=== PATIENT | male | born 1950 | race Caucasian/White ===

== ENCOUNTER → 2018-08-09 | Day surgery (SDC) | payer MEDICARE, OTHER ==
[2018-08-06 10:47] LABS: BASOPHILS # (AUTO) 0.1 (0.0-0.1); EOSINOPHILS # (AUTO) 0.7 (0.0-0.4); EOSINOPHILS % 6.7 % (0.0-6.0); HEMATOCRIT 48.7 % (38.2-49.6); HEMOGLOBIN 16.5 g/dL (14.0-18.0); LYMPHOCYTES # (AUTO) 1.1 (1.0-3.2); LYMPHOCYTES % 11.6 % (18.0-39.1); MEAN CORPUSCULAR HEMOGLOBIN 30.9 pg (28-32); MEAN CORPUSCULAR HGB CONC 33.9 g/dL (31-35); MEAN CORPUSCULAR VOLUME 91.2 fL (81-99); MONOCYTES # (AUTO) 1.1 (0.2-0.8); MONOCYTES % 10.8 % (4.4-11.3); NEUTROPHILS # (AUTO) 6.8 (2.1-6.9); NEUTROPHILS % 69.3 % (38.7-80.0); PLATELET COUNT 218 x10e3/uL (140-360); RED BLOOD COUNT 5.34 x10e6/uL (4.3-5.7); RED CELL DISTRIBUTION WIDTH 13.2 % (11.7-14.4)
[~2018-08-09] MED LIST: FENTANYL CITRATE/PF 100MCG/2 ML INJ ONE; GLUCAGON FOR INJ 1 MG VIAL ONE; HYOSCYAMINE SULFATE 0.5 MG/ML INJ ONE; LOTREL 10-20 M1 EACH PO; MIDAZOLAM HCL 2 MG/2 ML VIAL ONE; MOBIC7.5 MG PO; PANTOPRAZOLE SO40 MG PO; PROPOFOL IV EMULSION 10 MG/ML 50 ML VIAL ONE; VIT B12 IM; VYVANSE50 MG PO
[2018-08-09 15:20] VITALS: BP 139/65
--- NOTE | 2018-08-09 15:52 | Operative Report ---
DATE OF PROCEDURE: August 09, 2018 REFERRING PHYSICIAN: Dr. Gabe Grant. PROCEDURES PERFORMED: 1. Esophagogastroduodenoscopy with biopsies. 2. Colonoscopy with polypectomy and biopsies. INDICATIONS FOR ESOPHAGOGASTRODUODENOSCOPY: Heartburn, bloating. INDICATIONS FOR COLONOSCOPY: Diarrhea , new onset. Personal history of colon polyps. MEDICATION: Patient was done under MAC. Please see anesthesiologist's note. PROCEDURE: With the patient in the left lateral decubitus position, the flexible fiberoptic Olympus gastroscope was introduced into the esophagus under direct visualization without any difficulty. There was some patchy erythema noted in the distal esophagus. Grade 1 esophageal varices versus prominent esophageal veins were noted without active bleeding. The scope was then advanced with ease into the stomach, traversing a small sliding hiatal hernia. Mucosa overlying the antrum and the body revealed some patchy erythema and low-grade to moderate edema, and biopsies were obtained and sent to stain for H. pylori. Pylorus appeared to be of normal contour and shape, was intubated with ease, and the scope was advanced all the way to the 2nd portion of the duodenum. The scope was then withdrawn slowly, and the mucosa overlying the proximal 2nd portion and the duodenal bulb appeared to be within normal limits. The scope was then withdrawn back into the stomach and retroflexed, and mucosa overlying the fundus and the cardia appeared to be within normal limits. The scope was then straightened out. It was subsequently withdrawn. Patient tolerated the procedure well. IMPRESSION: 1. Mild distal esophagitis. 2. Grade 1 esophageal varices versus prominent esophageal veins without active bleeding. 3. Small sliding hiatal hernia. 4. Gastritis biopsied. Biopsies sent to stain for H. pylori. The patient was then turned around and after adequate lubrication of the anal canal, a flexible fiberoptic Olympus colonoscope was inserted into the rectum with ease and advanced all the way to the cecum. The scope was then withdrawn slowly. Mucosa overlying the cecum and ascending colon appeared to be within normal limits. One polyp was hot biopsied from the transverse colon. The mucosa overlying the descending colon grossly appeared to be within normal limits. The mucosa overlying the sigmoid and the rectum was diffusely ulcerated and somewhat nodular and friable, and biopsies were obtained. One polyp was hot biopsied from the sigmoid colon. The scope was then retroflexed into the distal rectum and small internal hemorrhoids were noted, none of which was actively bleeding. The scope was then straightened out. It was subsequently withdrawn after securing an adequate stool specimen that was sent for the appropriate stool studies. Patient tolerated the procedure well. IMPRESSION: 1. Transverse colon polyp hot biopsied. 2. Diverticulosis. 3. Sigmoid colon polyp hot biopsied. 4. Ulcerative proctosigmoiditis. 5. Internal hemorrhoids, none actively bleeding. PLAN: Follow up histology. Follow up stool studies. Initiate VSL#3 one p.o. daily and Bentyl 10 mg 1 p.o. t.i.d. Job#: [id number] EV cc:GABE GRANT MD
[2018-08-09 16:57] LABS: WBC,FECAL (FECAL LACTOFERRIN) POSITIVE (NEGATIVE)
[2018-08-10 13:00] LABS: C DIFFICILE TOXIN A&B AMP PROB NEGATIVE (NEGATIVE)
== END | disposition home or self-care (01) ==
LOC: OR 11:23
PROVIDERS: ATTEND Internal Medicine Gastroenterology
DX: K29.70 Gastritis, unspecified, without bleeding (principal); K63.5 Polyp of colon; K51.30 Ulcerative (chronic) rectosigmoiditis without complications; K20.9 Esophagitis, unspecified; K44.9 Diaphragmatic hernia without obstruction or gangrene; K57.30 Diverticulosis of large intestine without perforation or abscess without bleeding; K64.8 Other hemorrhoids; I10 Essential (primary) hypertension; F17.210 Nicotine dependence, cigarettes, uncomplicated; Z01.810 Encounter for preprocedural cardiovascular examination; Z01.812 Encounter for preprocedural laboratory examination
CPT/HCPCS: 36415; 43239; 45380; 45384; 83630; 83993; 85025; 87045; 87177; 87328; 87493; 93005; J1610; J1980; J2250; 45378

== ENCOUNTER → 2018-10-07 | Outpatient (CLI) | payer MEDICARE ==
[~2018-10-07] MED LIST changes: -FENTANYL CITRATE/PF 100MCG/2 ML INJ ONE; -GLUCAGON FOR INJ 1 MG VIAL ONE; -HYOSCYAMINE SULFATE 0.5 MG/ML INJ ONE; -MIDAZOLAM HCL 2 MG/2 ML VIAL ONE; -PROPOFOL IV EMULSION 10 MG/ML 50 ML VIAL ONE
--- NOTE | 2018-10-07 13:19 | Diagnostic Imaging Report ---
EXAM: Right upper quadrant abdominal ultrasound INDICATION: Abdominal pain. COMPARISON: None. TECHNIQUE: Transverse and longitudinal images of the right upper quadrant abdomen were obtained FINDINGS: Liver: Size: 15.1 cm in the right midclavicular line Appearance: Normal echogenicity, smooth contour Mass: There is a hyperechoic, homogeneous, well-circumscribed lesion measuring 2.2 x 2.0 x 2.6 cm in the right lobe of the liver. Gallbladder: No evidence of distention, pericholecystic fluid, wall thickening, stone, or reported sonographic Robledo's sign. Gallbladder wall measures 0.2 cm. Bile Ducts: Intrahepatic Ducts: No dilatation Extrahepatic Ducts: Common bile duct measures 0.4 cm, no dilatation Pancreas: Visualized portions of the pancreatic head, neck and proximal body are normal. Kidney: The right kidney measures 10.2 cm without evidence of hydronephrosis or stone. Vessels: Aorta: Visualized portions are normal Inferior Vena Cava: Visualized portions are normal Main Portal Vein: 1.3 cm, normal size with hepatopetal flow. Free Fluid: No evidence of ascites. IMPRESSION: Well-circumscribed, homogeneous, hyperechoic right hepatic lobe lesion measuring up to 2.6 cm. Imaging characteristics are suggestive of but not definitive for hemangioma. A liver protocol CT or MRI may be considered for further evaluation. No sonographic evidence of cholecystitis. Signed by: Dr. Go Veras MD on 10/07/2018 1:16 PM
== END ==
LOC: US 09:54
PROVIDERS: ATTEND Internal Medicine Gastroenterology
DX: R10.9 Unspecified abdominal pain (principal)
CPT/HCPCS: 76705

== ENCOUNTER → 2019-01-17 | Outpatient (CLI) | payer MEDICARE ==
--- NOTE | 2019-01-17 15:06 | Diagnostic Imaging Report ---
History:May back pain for 4 months Comparison studies:None Technique: Sagittal T2, T1 and STIR, coronal T2. Intravenous contrast: None Findings: Curvature: Normal kyphosis. No scoliosis. Paraspinal soft tissues: No paraspinal signal abnormalities. 2 cm cyst is seen in the left kidney upper pole. T2 hyperintense lesions are seen in the liver segments 6 and 7, measuring 0.5 and 1 cm, may represent hemangiomas. Prior Spinal cord: Normal in morphology and signal intensity. Vertebrae: Nonspecific 1 cm lesion is seen at T1 vertebral body anterior aspect, hypointense on T1 and hyperintense on T2. T1 isointense lesions are seen at T2, T6, T8, T12 and L1 vertebral bodies, most likely related to hemangioma. No acute fractures, infection or neoplasm. Chronic mild loss of central height at T7, T8, T9 and T11 vertebral body, with associated Schmorl nodes at the endplates. Disk spaces: Disc degeneration with loss of T2 signal from T1 through T9. Disk herniations: At T5-6 small central disc protrusion without significant canal stenosis or foraminal narrowing Foramina: Patent. Spinal canal: Patent. Partially visualized posterior disc osteophyte complexes and ligamentum flavum thickening from C3 through C7 results in at least moderate canal stenosis at the cervical spine. IMPRESSION: 1. Mild degenerative changes with grossly patent canal and foramina. 2. 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 Nonspecific lesion at T1 vertebral body, may represent an atypical hemangioma or bone marrow infiltrative process, recommend follow-up in 4 months with contrast MRI. 3. Partially visualized degenerative changes of the cervical spine results in at least moderate canal stenosis as described above. Signed by: DR Saravanan Jaime M.D. on 01/17/2019 3:02 PM
== END ==
LOC: MRI 13:11
PROVIDERS: ATTEND Internal Medicine
DX: M54.14 Radiculopathy, thoracic region (principal); M54.6 Pain in thoracic spine
CPT/HCPCS: 72146

== ENCOUNTER 2021-07-01 12:10 | Outpatient (RCR) | payer MEDICARE, OTHER ==
[~2021-07-01 12:10] MED LIST changes: +CLOTRIMAZOLE/BETAMETHASONE 45 GM CR TP ONE; +COLLAGENASE OINTMENT 30 GM TUBE ONE; +LIDOCAINE VISC 2% SOLN 15 ML UDC ONE
[2021-07-01 14:36] LABS: BASOPHILS # (AUTO) 0.1 (0.0-0.1); BASOPHILS % 0.7 % (0.0-1.0); EOSINOPHILS # (AUTO) 0.5 (0.0-0.4); EOSINOPHILS % 3.4 % (0.0-6.0); HEMATOCRIT 40.5 % (38.2-49.6); HEMOGLOBIN 13.2 g/dL (14.0-18.0); LYMPHOCYTES # (AUTO) 1.6 (1.0-3.2); LYMPHOCYTES % 10.3 % (18.0-39.1); MEAN CORPUSCULAR HEMOGLOBIN 29.8 pg (28-32); MEAN CORPUSCULAR HGB CONC 32.6 g/dL (31-35); MEAN CORPUSCULAR VOLUME 91.4 fL (81-99); MONOCYTES # (AUTO) 1.7 (0.2-0.8); MONOCYTES % 11.3 % (4.4-11.3); NEUTROPHILS % 72.7 % (38.7-80.0); PLATELET COUNT 221 x10e3/uL (140-360); RED BLOOD COUNT 4.43 x10e6/uL (4.3-5.7); RED CELL DISTRIBUTION WIDTH 15.7 % (11.7-14.4)
[2021-07-01 14:54] LABS: ALBUMIN 3.3 g/dL (3.5-5.0); ALBUMIN/GLOBULIN RATIO 1.1 (0.8-2.0); ANION GAP 11.7 mmol/L (8-16); CALCIUM 8.5 mg/dL (8.4-10.2); CREATININE, SERUM 1.11 mg/dL (0.72-1.25); POTASSIUM 3.7 mmol/L (3.5-5.1)
== END 2021-07-07 ==
LOC: WCC 12:10
PROVIDERS: ATTEND Internal Medicine Infectious Disease
DX: I83.11 Varicose veins of right lower extremity with inflammation (principal); I83.12 Varicose veins of left lower extremity with inflammation; S81.801A Unspecified open wound, right lower leg, initial encounter; D89.9 Disorder involving the immune mechanism, unspecified; I10 Essential (primary) hypertension; L40.0 Psoriasis vulgaris; W01.198A Fall on same level from slipping, tripping and stumbling with subsequent striking against other object, initial encounter; F17.213 Nicotine dependence, cigarettes, with withdrawal
CPT/HCPCS: 36415; 80053; 85025

== ENCOUNTER 2021-08-05 10:58 | Outpatient (RCR) | payer MEDICARE, OTHER ==
[~2021-08-05 10:58] MED LIST changes: +LIDOCAINE/PRILOCAINE 2.5-2.5% KIT ONE; +TRIAMCINOLONE ACET 0.1% CREAM 15 GM TUBE ONE
== END 2021-08-06 ==
LOC: WCC 10:58
PROVIDERS: ATTEND Internal Medicine Infectious Disease
DX: S81.801A Unspecified open wound, right lower leg, initial encounter (principal); I83.11 Varicose veins of right lower extremity with inflammation; I83.12 Varicose veins of left lower extremity with inflammation; L40.0 Psoriasis vulgaris; I10 Essential (primary) hypertension; E29.1 Testicular hypofunction; D89.9 Disorder involving the immune mechanism, unspecified; F90.2 Attention-deficit hyperactivity disorder, combined type; W01.198A Fall on same level from slipping, tripping and stumbling with subsequent striking against other object, initial encounter; F17.213 Nicotine dependence, cigarettes, with withdrawal

== ENCOUNTER → 2021-08-22 | Outpatient (CLI) | payer MEDICARE ==
[~2021-08-22] MED LIST changes: -CLOTRIMAZOLE/BETAMETHASONE 45 GM CR TP ONE; -COLLAGENASE OINTMENT 30 GM TUBE ONE; -LIDOCAINE VISC 2% SOLN 15 ML UDC ONE; -LIDOCAINE/PRILOCAINE 2.5-2.5% KIT ONE; -TRIAMCINOLONE ACET 0.1% CREAM 15 GM TUBE ONE
== END ==
LOC: RAD 10:52
PROVIDERS: ATTEND Internal Medicine Infectious Disease
DX: S81.801A Unspecified open wound, right lower leg, initial encounter (principal)
CPT/HCPCS: 93970

== ENCOUNTER 2021-08-26 11:26 | Outpatient (RCR) | payer MEDICARE, OTHER ==
[~2021-08-26 11:26] MED LIST changes: +LIDOCAINE VISC 2% SOLN 15 ML UDC ONE; +MUPIROCIN 2% OINT 22 GM TUBE ONE
== END 2021-09-06 ==
LOC: WCC 11:26
PROVIDERS: ATTEND Internal Medicine Infectious Disease
DX: S81.801A Unspecified open wound, right lower leg, initial encounter (principal); D89.9 Disorder involving the immune mechanism, unspecified; E29.1 Testicular hypofunction; L40.0 Psoriasis vulgaris; I10 Essential (primary) hypertension; F90.2 Attention-deficit hyperactivity disorder, combined type; W01.198A Fall on same level from slipping, tripping and stumbling with subsequent striking against other object, initial encounter; F17.213 Nicotine dependence, cigarettes, with withdrawal

== ENCOUNTER 2023-01-26 11:30 | Outpatient (RCR) | payer MEDICARE ==
[2023-01-12 14:27] LABS: ALBUMIN 3.8 g/dL (3.5-5.0); ALBUMIN/GLOBULIN RATIO 1.1 (0.8-2.0); ANION GAP 10.9 mmol/L (8-16); BASOPHILS # (AUTO) 0.1 (0.0-0.1); BASOPHILS % 1.4 % (0.0-1.0); CALCIUM 9.6 mg/dL (8.4-10.2); CREATININE, SERUM 1.77 mg/dL (0.72-1.25); EOSINOPHILS # (AUTO) 0.8 (0.0-0.4); EOSINOPHILS % 8.6 % (0.0-6.0); HEMATOCRIT 44.3 % (38.2-49.6); HEMOGLOBIN 14.8 g/dL (14.0-18.0); LYMPHOCYTES # (AUTO) 1.4 (1.0-3.2); LYMPHOCYTES % 14.7 % (18.0-39.1); MEAN CORPUSCULAR HEMOGLOBIN 31.2 pg (28-32); MEAN CORPUSCULAR HGB CONC 33.4 g/dL (31-35); MEAN CORPUSCULAR VOLUME 93.5 fL (81-99); MONOCYTES # (AUTO) 0.9 (0.2-0.8); MONOCYTES % 8.9 % (4.4-11.3); NEUTROPHILS # (AUTO) 6.3 (2.1-6.9); NEUTROPHILS % 65.9 % (38.7-80.0); PLATELET COUNT 208 x10e3/uL (140-360); POTASSIUM 3.9 mmol/L (3.5-5.1); RED BLOOD COUNT 4.74 x10e6/uL (4.3-5.7); RED CELL DISTRIBUTION WIDTH 14.3 % (11.7-14.4)
[~2023-01-26 11:30] MED LIST changes: -MUPIROCIN 2% OINT 22 GM TUBE ONE
== END 2023-02-04 ==
LOC: WCC 11:30
PROVIDERS: ATTEND Internal Medicine Infectious Disease
DX: S81.801A Unspecified open wound, right lower leg, initial encounter (principal); S40.812A Abrasion of left upper arm, initial encounter; R60.0 Localized edema
CPT/HCPCS: 36415; 80053; 83036; 84134; 85025; 86140

== ENCOUNTER 2023-02-23 12:03 | Outpatient (RCR) | payer MEDICARE ==
[~2023-02-23 12:03] MED LIST changes: +LIDOCAINE/PRILOCAINE 2.5-2.5% KIT ONE
== END 2023-03-06 ==
LOC: WCC 12:03
PROVIDERS: ATTEND Internal Medicine Infectious Disease
DX: S81.801A Unspecified open wound, right lower leg, initial encounter (principal); S81.802A Unspecified open wound, left lower leg, initial encounter; R60.0 Localized edema